=== PATIENT | female | born 1985 | race Caucasian/White ===

== ENCOUNTER 2017-02-18 20:06 | Emergency (ER) | payer OTHER ==
--- OUTSIDE RECORDS SUMMARY | 2017-02-18 20:32 | XMS REPORT | Continuity of Care Document ---
:1985 Author Organization [place] [address] Care Team Providers Name Role Phone Provider, None Per Patient Primary Care Provider Unavailable Source Comments This disclosure is being made pursuant to the [employer] program and maynot contain all information available regarding this patient.[facility] Active Allergies and Adverse Reactions Allergen Noted Date Severity Reactions Comments Keflex 03/09/2015 High Anaphylaxis Current Medications Be aware that medications may not be up to date as of this document. Alwaysverify current medications with the patient. Prescription Sig. Disp. Refills Start Date End Date Status Levothyroxine Sodium Take by mouth. Active 150 MCG CAPS Unclassified (UNABLE strattera Active TO FIND) ibuprofen Take 1 tablet by 30 tablet 0 03/09/2015 Active (ADVIL,MOTRIN) 600 MG mouth every 8 tablet (eight) hours as needed for Pain. bacitracin 500 UNIT/GM To be used after 14 g 0 03/09/2015 Active ointment blisters rupture. Two times daily to affected areas. Active Problems No known active problems Social History Tobacco Use Types Packs/Day Years Used Date Current Every Day Smoker Cigarettes Smokeless Tobacco: Never Used Alcohol Use Drinks/Week oz/Week Comments No Last Filed Vital Signs Vital Sign Reading Time Taken Blood Pressure 137/74 03/09/2015 4:15 PM CDT Pulse 70 03/09/2015 4:15 PM CDT Temperature 36.2 C (97.2 F) 03/09/2015 4:15 PM CDT Respiratory Rate 16 03/09/2015 4:15 PM CDT Height 1.778 m (5' 10") 03/09/2015 3:06 PM CDT Weight 111.131 kg (245 lb) 03/09/2015 3:06 PM CDT Body Mass Index 35.15 03/09/2015 3:06 PM CDT Oxygen Saturation 99% 03/09/2015 4:15 PM CDT Plan of Care Health Maintenance Due Date Last Done Comments Tetanus/Pertussis (1 - Tdap) 2003 Pap Smear 2005 Influenza Immunization (#1) 2016 Results from Last 3 Months Not on file
[2017-02-18] MEDS ORDERED: SULFAMETHOXAZOLE/TRIMETHOPRIM 1 TAB TABLET PO ONE (20:33)
[2017-02-18] MEDS ORDERED: IBUPROFEN 600 MG TABLET PO ONE (20:33)
[2017-02-18] MEDS ORDERED: MUPIROCIN 22 APPL TUBE TP ONE ×2 (20:36→20:39)
[2017-02-18] MEDS ORDERED: SULFAMETHOXAZOLE/TRIMETHOPRIM 1 TAB TABLET ONE (20:40)
[2017-02-18] MEDS ORDERED: IBUPROFEN 600 MG TABLET ONE (20:40)
[2017-02-18 20:55] VITALS: BP 135/82
--- NOTE | 2017-02-18 21:06 | ERNOTE ---
Integumentary HPI - Narrative Date of Service: 02/18/17 - General Presenting Symptoms: abscess Time Seen by Provider: 02/18/17 20:22 Source: patient, RN notes reviewed Exam Limitations: no limitations - Immun/Allergies/Home Medications Immunizations: IMMUNIZATION HX Immunizations Up to Date Yes History of Influenza Vaccine Yes Allergies/Adverse Reactions: Allergies Allergy/AdvReac Type Severity Reaction Status Date / Time No Known Allergies Allergy Verified 02/18/17 20:17 Home Medications: HOME MEDICATIONS Levothyroxine Sodium [Levothyroxine (Synthroid)] 150 mcg PO DAILY 02/04/13 [ Last Taken 01/09/14] Albuterol Sulfate [Albuterol Sulfate Hfa] 2 puff IH Q4H PRN 01/09/14 [Last Taken 01/09/14 21:00] Ibuprofen [Motrin] 600 mg PO Q6H PRN #40 tab 02/18/17 [Last Taken Unknown] Sulfamethoxazole/Trimethoprim [Bactrim Ds] 1 tab PO BID #20 tab 02/18/17 [Last Taken Unknown] - History of Present Illness Narrative: 31 y/o male ambulatory to the ED for an abscess on her hairline on her posterior neck. She noticed a lesion there 3 or 4 months ago that wound crust over periodically. In the past 2 days, more lesions have appeared and they have become painful. She also reports enlarged lymph nodes in her neck. She is unsure if she has had a fever. She reports that she is in the midst of being evaluated for possible lymphoma. She is having a PET scan next week. Location: Reports: scalp, neck Quality: Reports: painful Exposure: Reports: no cause identified Associated Symptoms: Reports: swelling/mass/lumps Prior Treatment: Denies: recently seen Review of Systems - Review of Systems Constitutional: Absent: chills, malaise EYE: Present: no symptoms reported ENT: Present: no symptoms reported Respiratory: Absent: shortness of breath, cough Cardiology: Absent: chest pain, syncope Gastrointestinal/Abdominal: Absent: nausea, vomiting Genitourinary: Absent: other - possible Musculoskeletal: Present: neck pain. Absent: back pain, joint pain Skin: Present: lesions, lumps. Absent: rash, change in color Neurological: Absent: headache, dizziness/light-headedness Endocrine: Present: no symptoms reported Hematologic/Lymphatic: Present: no symptoms reported Psych: Present: no symptoms reported - Patient's Past Medical History Patient History - Medical: Hypothyroidism, Migraines, Obesity, Seizures Patient History - Cardiac/Respiratory: Asthma Patient History - Cancer: No Hx of Cancer Patient History - Surgical Procedures: , D & C Patient History - Other: None LMP (females 10-50): 3 weeks - Social History Living Situations: home Psych History: No pertinent hx Smoking Status: Current every day smoker Alcohol Use: rarely Drug Use: marijuana - Immunizations Immunizations Up to Date: Yes History of Influenza Vaccine: Yes Physical Exam - Physical Exam General Appearance: Present: wd/wn, alert, mild distress, anxious, obese Eye Exam: Normal inspection: bilateral Ears, Nose, Throat: Present: normal ENT inspection Neck: Present: supple, limited range of motion - d/t pain/swelling from posterior neck/scalp lesions, lymphadenopathy (R), lymphadenopathy (L) Respiratory: Present: no respiratory distress, normal breath sounds, no accessory muscle use, lungs clear Cardiovascular/Chest: Present: regular rate, rhythm, no murmur Extremity Exam: Present: normal inspection, normal range of motion Neurological Exam: Present: alert, oriented, normal mood/affect, no motor/ sensory deficits Skin Exam: Present: normal color, warm/dry, other - several inflammed, indurated cystic lesions at hairline posteriorly, no drainage present, very tender to touch ED Progress - Vital Signs Patient's Vital Signs:: I have reviewed the patient's vital signs. Vital Signs: Vital Signs 02/18/17 20:09 Temperature 36.4 C L Pulse Rate 98 Respiratory 18 Rate Blood Pressure 138/98 O2 Sat by Pulse 98 Oximetry - Progress/Reassessment Chief Complaint: Abscess Progress:: Unchanged Plan - Plan Plan: None of the lesions currently appear able to being drained and none are able to be cultured. Discussed need for f/u if lesions become larger and fluctuant. Patient in agreement with plan. Departure Clinical Impression: Folliculitis - Departure Disposition: Home Follow Up Needed Condition: Stable Instructions: Abscess, [id number] Additional Instructions: Warm, moist compresses to effected area several times a day Avoid picking at lesions Return for fever, worsening pain, or other concerns Referrals: Bell Felder MD [Primary Care Provider] - Prescriptions: Ibuprofen [Motrin] 600 mg PO Q6H PRN #40 tab PRN Reason: Pain Sulfamethoxazole/Trimethoprim [Bactrim Ds] 1 tab PO BID #20 tab
== END 2017-02-18 20:50 | disposition home or self-care (01) ==
LOC: ER 20:06
DX: L73.9 Follicular disorder, unspecified (principal); E03.9 Hypothyroidism, unspecified; Z72.0 Tobacco use

== ENCOUNTER 2018-10-20 02:27 | Inpatient (IN) ==
[2018-10-20 03:15] LABS: Hematocrit 34.9 % (37.0-47.0); Hemoglobin 11.8 gm/dL (12.5-16.0); Mean Cell Volume 94.6 fl (78-100); Mean Corpuscular Hgb Conc 33.8 g/dl (32-36); Mean Platelet Volume 10.5 fl (8-12.5); Neutrophil # 8.8 K/mm3 (1.3-6.0); Neutrophil % 66.7 % (42-75.0); Platelet Count 243 K/mm3 (150-450); Red Blood Count 3.69 M/mm3 (4.2-5.4); Red Cell Distribution Width 12.7 % (11.5-14.0); White Blood Count 13.2 K/mm3 (4.0-10.5)
[2018-10-20 03:31] LABS: Albumin * 2.4 gm/dl (3.4-5.0); Anion Gap 13.8 mmol/L (6.8-13.8); BUN/Creatinine Ratio 23.3 (9.0-21.6); Bilirubin, Total 0.2 mg/dL (0.0-1.1); Ca. Corrected For Albumin 11.1 mg/dL (8.4-10.2); Calcium * 10.1 mg/dL (7.9-10.9); Carbon Dioxide 25.2 mmol/L (24-32.6); Total Protein 6.4 gm/dL (6.2-8.2)
[2018-10-20 03:53] LABS: Random Urine Total Protein 37.1 mg/dL (0-12)
[2018-10-20] MEDS ORDERED: ceFAZolin SODIUM 1 GM VIAL IV STA (04:10)
[2018-10-20] MEDS ORDERED: OXYTOCIN 20 UNITS in RINGER'S SOLUTION,LACTATED 1,000 ML IV ONE (04:11)
--- NOTE | 2018-10-20 04:14 | HP ---
Chief Complaint - Chief Complaint Date of Service: 10/20/18 Chief Complaint: leaking fluid and bleeding History of Present Illness: 33 yo, CF, at 37.6 weeks with EDC of 11/04/18 by a 24.6 week u/s. Presents to the birthplace with complaining of leaking fluid and bleeding. Per patient, she noted leaking a large amount of fluid with bleeding at home about 2:30 am. She also feels cramping. She has no care and she is low functioning. She had one visit in the ER in Jul that gave her the due date above. She had a previous in 2007 closed to her due date with preeclampsia. Her blood pressure was elevated 180/110, 182/97, 142/94, 140/90. Denies headache, blurry vision or epigastric pain. denies chronic hypertension. She takes PNV and levothyroxine. At the place, she was confirmed PROM with some bleeding. her cervix was closed. She had a 4 inch spot of blood on the under sheet. PMH: hypothyroidism PSH C/S x 1 (Sep 2007) SAB x 2 Medical History (Last Reviewed 07/21/18 @ 22:51 by Ting Dueñas RN) Asthma Depression Onset Date: Unknown Hypothyroidism (acquired) Onset Date: Unknown Obesity Onset Date: Unknown Chlamydia trachomatis infection Onset Date: ~2003 History of seizures as a child Onset Date: ~1999 History of wisdom tooth extraction Onset Date: ~1998 Surgical History: Surgical History (Last Reviewed 07/21/18 @ 22:51 by Ting Dueñas RN) History of section Onset Date: ~2007 History of dilation and curettage Onset Date: ~2010 Family History: Family History (Last Reviewed 07/21/18 @ 22:51 by Ting Dueñas RN) Father Hypothyroidism Mother Cancer lung Social History: Preferred Language Mongolian Smoking Status Current every day smoker Psych History No pertinent hx (Last Updated 05/20/18 @ 11:44 by Marj Patrick DNP) No Social History Section defined Review Of Systems (GEN) - Review of Systems Abdominal: Present: Other - cramping Genitourinary: Present: Other - leaking fluid and bleeding. Misc: All systems neg except as marked Immunizations: IMMUNIZATION HX Immunizations Up to Date Yes History of Influenza Vaccine No Allergies/Adverse Reactions: Allergies Allergy/AdvReac Type Severity Reaction Status Date / Time No Known Allergies Allergy Verified 10/20/18 04:06 Home Medications: HOME MEDICATIONS Cefuroxime Axetil [Ceftin] 500 mg PO BID #20 tab 07/22/18 [Last Taken Unknown] HYDROcodone/ACETAMINOPHEN [[place] 5-325] 1 tab PO Q4H PRN #40 tab 07/22/18 [Last Taken Unknown] Levothyroxine Sodium [Synthroid] 150 mcg PO DAILY #30 tab 07/22/18 [Last Taken Unknown] Exam - Exam Constitutional: Present: Alert, Oriented x3, Cooperative ENT Exam: Present: hearing grossly normal Neck: Present: supple Respiratory: Present: lungs clear, normal breath sounds, No rales, No wheezing Cardiovascular/Chest: Present: regular rate, rhythm, no murmur Abdomen: Present: soft, nontender, other - gravid /Rectal: Present: Other - + amniotest and bloody show, cervix closed. Extremity: Present: no pedal edema, no calf tenderness Skin Exam: Present: normal color, warm/dry, no cyanosis Appearance: Present: appropriate appearance Eye contact: Present: cooperative, good eye contact, normal speech Diagnostic Studies: Abnormal Lab Results 10/20/18 10/20/18 10/20/18 Range/Units 03:10 03:10 03:41 WBC 13.2 H (4.0-10.5) K/mm3 RBC 3.69 L (4.2-5.4) M/mm3 Hgb 11.8 L (12.5-16.0) gm/dL Hct 34.9 L (37.0-47.0) % MCH 32.0 H (27-31) pg Immature Gran % (Auto) 0.70 H (0.001-0.429) % Immature Gran # (Auto) 0.09 H (0.000-0.0310) K/mm3 Neutrophils # 8.8 H (1.3-6.0) K/mm3 BUN/Creatinine Ratio 23.3 H (9.0-21.6) Calcium Adj for Albumin 11.1 H (8.4-10.2) mg/dL ALT 15 L (19-67) U/L Albumin 2.4 L (3.4-5.0) gm/dl Ur Random Creatinine 50.1 L (60-200) mg/dL U Random Total Protein 37.1 H (0-12) mg/dL U [place] Prot/Creat Ratio 741 H (0-199) mg/gm Laboratory Results WBC 13.2 K/mm3 (4.0-10.5) H 10/20/18 03:10 RBC 3.69 M/mm3 (4.2-5.4) L 10/20/18 03:10 Hgb 11.8 gm/dL (12.5-16.0) L 10/20/18 03:10 Hct 34.9 % (37.0-47.0) L 10/20/18 03:10 MCV 94.6 fl (78-100) 10/20/18 03:10 MCH 32.0 pg (27-31) H 10/20/18 03:10 MCHC 33.8 g/dl (32-36) 10/20/18 03:10 RDW 12.7 % (11.5-14.0) 10/20/18 03:10 Plt Count 243 K/mm3 (150-450) 10/20/18 03:10 MPV 10.5 fl (8-12.5) 10/20/18 03:10 Immature Gran % (Auto) 0.70 % (0.001-0.429) H 10/20/18 03:10 Immature Gran # (Auto) 0.09 K/mm3 (0.000-0.0310) H 10/20/18 03:10 Neutrophils % 66.7 % (42-75.0) 10/20/18 03:10 Lymphocytes % 23.8 % (20-51) 10/20/18 03:10 Monocytes % 6.9 % (0.0-9) 10/20/18 03:10 Eosinophils % 1.4 % (0.0-3.0) 10/20/18 03:10 Basophils % 0.5 % (0.0-1.0) 10/20/18 03:10 Nucleated RBC % 0.0 k/mm3 (0-1) 10/20/18 03:10 Neutrophils # 8.8 K/mm3 (1.3-6.0) H 10/20/18 03:10 Lymphocytes # 3.15 k/mm3 (1.5-3.5) 10/20/18 03:10 Monocytes # 0.9 k/mm3 (0.0-1.0) 10/20/18 03:10 Eosinophils # 0.2 k/mm3 (0.0-0.7) 10/20/18 03:10 Absolute Basophils 0.1 k/mm3 (0.0-0.1) 10/20/18 03:10 Sodium 138 mmol/L (132-142) 10/20/18 03:10 Plasma Sodium 138 mmol/L (130-142) 10/20/18 03:10 Potassium 4.0 mmol/L (3.4-4.6) 10/20/18 03:10 Chloride 103 mmol/L (97-106) 10/20/18 03:10 Carbon Dioxide 25.2 mmol/L (24-32.6) 10/20/18 03:10 Anion Gap 13.8 mmol/L (6.8-13.8) 10/20/18 03:10 BUN 21 mg/dL (3-23) D 10/20/18 03:10 Creatinine 0.90 mg/dL (0.4-1.4) 10/20/18 03:10 Est GFR (Non-Af Amer) 76 mL/min (60-130) 10/20/18 03:10 BUN/Creatinine Ratio 23.3 (9.0-21.6) H 10/20/18 03:10 Random Glucose 98 mg/dL (70-110) 10/20/18 03:10 Calcium 10.1 mg/dL (7.9-10.9) 10/20/18 03:10 Calcium Adj for Albumin 11.1 mg/dL (8.4-10.2) H 10/20/18 03:10 Total Bilirubin 0.2 mg/dL (0.0-1.1) 10/20/18 03:10 AST 29 U/L (0-48) 10/20/18 03:10 ALT 15 U/L (19-67) L 10/20/18 03:10 Alkaline Phosphatase 152 U/L (50-170) 10/20/18 03:10 Total Protein 6.4 gm/dL (6.2-8.2) 10/20/18 03:10 Albumin 2.4 gm/dl (3.4-5.0) L 10/20/18 03:10 Ur Random Creatinine 50.1 mg/dL (60-200) L 10/20/18 03:41 U Random Total Protein 37.1 mg/dL (0-12) H 10/20/18 03:41 U [place] Prot/Creat Ratio 741 mg/gm (0-199) H 10/20/18 03:41 Assessment/Plan - Narrative Narrative: FHR: 150s, moderate variability and variable decels. [place]: irregular contractions A: 37.6 weeks with PROM, vaginal bleeding and preeclampsia with severe features. Plan: will call for a urgent/emergent c/s.
--- NOTE | 2018-10-20 04:43 | ANES ---
Anesthesia Pre Procedure Eval Vitals/Labs: Last Vital Signs Temp 36.9 C 10/20/18 03:52 Pulse 71 10/20/18 03:52 Resp 18 10/20/18 03:52 BP 142/94 H 10/20/18 03:52 Pulse Ox 97 10/20/18 03:52 HOME MEDICATIONS Cefuroxime Axetil [Ceftin] 500 mg PO BID #20 tab 07/22/18 [Last Taken Unknown] HYDROcodone/ACETAMINOPHEN [[place] 5-325] 1 tab PO Q4H PRN #40 tab 07/22/18 [Last Taken Unknown] Levothyroxine Sodium [Synthroid] 150 mcg PO DAILY #30 tab 07/22/18 [Last Taken Unknown] Allergies/Adverse Reactions: Allergies Allergy/AdvReac Type Severity Reaction Status Date / Time No Known Allergies Allergy Verified 10/20/18 04:06 - Planned Procedure Planned Procedure: C/S Medication List Reviewed:: Yes Allergies Verified: Yes Medical History (Last Reviewed 10/20/18 @ 04:42 by Lauro Cantrell CRNA) Asthma Depression Onset Date: Unknown Hypothyroidism (acquired) Onset Date: Unknown Obesity Onset Date: Unknown Chlamydia trachomatis infection Onset Date: ~2003 History of seizures as a child Onset Date: ~1999 History of wisdom tooth extraction Onset Date: ~1998 Surgical History (Last Reviewed 10/20/18 @ 04:42 by Lauro Cantrell CRNA) History of section Onset Date: ~2007 History of dilation and curettage Onset Date: ~2010 Family History (Last Reviewed 10/20/18 @ 04:42 by Lauro Cantrell CRNA) Father Hypothyroidism Mother Cancer lung - Airway/Neck/Teeth Within Normal Limits:: Yes Teeth Condition: intact Mallampatti Score: 1 Thyromental (T-M) distance: > 6 cm Mandibulo Hyoid distance: > 3 cm - Respiratory Respiratory Physical: lungs clear Smoking Status: Current every day smoker Discussed smoking cessation including day of surgery: Yes Sleep Apnea currently treated: No Sleep Apnea by current assessment: No Discussed Risks/Treatment of YOUNG: No - Cardiovascular Tolerate Activity: Good Heart Sounds: S1 & S2, Regular - Anesthesia Assessment and Plan ASA Class: PS, III Anesthesia Type Plan: Spinal
[2018-10-20 04:56] LABS: Urine Bilirubin Negative (NEGATIVE); Urine Blood 250 /ul (NEGATIVE); Urine Ketone Negative (NEGATIVE); Urine Protein 15 mg/dL (NEGATIVE); Urine Urobilinogen Normal (NORMAL)
[2018-10-20 05:03] LABS: Urine Appearance Cloudy (CLEAR); Urine Bacteria 1+; Urine Color Dark Yellow; Urine Nitrite Positive (NEGATIVE); Urine RBC >50 /hpf (0-5)
[2018-10-20 05:04] LABS: Cocaine Ur Negative (NEGATIVE); Urine Barbiturate Negative (NEGATIVE); Urine Benzodiazepines Negative (NEGATIVE); Urine Opiates Negative (NEGATIVE); Urine PCP Negative (NEGATIVE)
[2018-10-20 05:05] LABS: Urine THC Positive (NEGATIVE)
--- NOTE | 2018-10-20 07:01 | ANES ---
Post Anesthesia Discharge - Transfer of Care Transfer of Care handoff given to nurse: Yes - Discharge from PACU Discharge from PACU when meets criteria: Yes - Discharge to ASU Discharge to ASU-no complications/pt stable: Yes
--- NOTE | 2018-10-20 07:08 | OR ---
Operative Report - Dictated Report Narrative: DATE OF PROCEDURE: 10/20/2018 PROCEDURE: 1. Repeat low transverse section ANESTHESIA: Spinal. PREOPERATIVE DIAGNOSES: 1. Intrauterine at 37 6/7 weeks 2. Previous c-sections x 1 3. No care 4. PROM 5. Vaginal bleeding. 6. Severe preeclampsia 7. Urine drug screen positive for amphetamine and THC POSTOPERATIVE DIAGNOSES: 1. Intrauterine at 37 6/7 weeks 2. Previous c-sections x 1 3. No care 4. PROM 5. Placental abruption 6. Severe preeclampsia 7. Urine drug screen positive for amphetamine and THC SURGEON: Marilin Meadows M.D. ENTERPRISE BUSINESS ARCHITECT: Cristina Phillips FINDINGS: 1. male in cephalic presentation. clear amniotic fluid. Weight 3006 g, 8/9, Time of delivery: 05:46 2. Weak abdominal fascia. Dense adhesions in lower uterine segment, with thin lower uterine segment 2 mm in thickness, bladder adherent high in the lower uterine segment. Upon opening the the lower uterine segment, there was some retroplacental clots extruding out of the incision, suggesting placental abruption. 3. Normal uterus, and normal bilateral ovaries and tubes SPECIMENS: placenta DRAIN: Ledesma to gravity. URINE OUTPUT: 200 ml. BLOOD LOSS: 300 ml. IV FLUIDS: 1700 ml COMPLICATIONS: None. Description of Operative Procedure: Prior to taking the patient to the operating room, the patient's wanted to go with the patient and did not obey nursing arrangement. He got agitated and he carried a long knife in his belt. So police was called in to remove the long knife and to get him to cooperate with us. This delayed the surgery for some time. The patient consented prior to the operation and was taken to the operating room. Spinal anesthesia was achieved without complications. The patient was then placed in the dorsal supine position with leftward tilt. Sequential compression device was placed on the lower extremities and a Ledesma catheter was placed into the bladder. Three grams of Ancef was given prior to the start of anesthesia. The abdomen was prepped with Duraprep and draped in the usual sterile fashion. A time-out procedure was conducted to confirm the correct patient for the correct procedure. Anesthesia was tested and appeared adequate. A Pfannenstiel incision was made with a scalpel. The incision was carried through the subcutaneous layer to the fascia. The fascia was nicked at the midline and extended laterally with Jasso scissors. The upper edge of the fascia incision was grasped with two Addison clamps, elevated, and the underlying rectus muscles were dissected off. The Addison clamps were repositioned to the lower edge of the fascia incision, which was tented up and dissected off from the rectus muscles. The rectus muscles were in the midline. The peritoneal incision was entered bluntly and extended superiorly and inferiorly with good visualization of the bladder. A bladder blade was inserted. The vesicouterine peritoneum was identified, grasped with a smooth pick-ups, and entered sharply with Matzenbaum scissors. The incision was extended laterally, and a bladder flap was created. The bladder was dissected off the lower uterine segment. The bladder blade was repositioned. The lower uterine segment was incised in a transverse fashion with the scalpel. The incision was extended laterally by stretching. The bladder blade was removed. The amniotic sac was ruptured with clear fluid. The baby was in cephalic presentation. The head was elevated through the incision. Fundal pressure was applied and the baby was delivered atraumatically. Baby cried immediately after . The cord was clamped and cut. The baby was handed off to the nurse and the licensing engineer in attendance. Cord blood was obtained. The placenta was removed manually. The uterus was cleared off clots and membrane and repaired in situ. The uterine incision was closed with 0 vicryl in a running-lock fashion. A second imbricating layer was placed with 2-0 Vicryl in a continuous non-lock fashion. Good hemostasis was obtained. The gutters were cleared of blood clots and fluid. The peritoneum was closed with 2-0 Vicryl. The rectus muscle was inspected and found hemostatic. The lower part of the rectus muscles were brought together with two figure of eight sutures to keep the bladder from exposing under the fascia. The fascia was reapproximated with #1 Vicryl in running fashion. The subcutaneous layer was closed with 2-0 vicryl interruptedly. The skin was closed with 3-0 Monocryl suture in a subcuticular fashion. Dermabond was applied to incision. The incision was covered with Steri strips, Telfa, ABD and adhesive pressure dressing tape. The patient tolerated the procedure well. Sponge, lap, needle and instrument counts were correct x 2. The patient was taken to the recovery room in stable condition. Marilin Meadows MD History for MU Definition: * The number of deliveries resulting in a live the patient experienced prior to current hospitalization * The previous delivery of live twins or any live multiple gestation is considered one live event. *If primagravida or nulliparous is documented select zero for the number of previous live births. Live Events: 1
[2018-10-20] MEDS ORDERED: oxyCODONE HCL/ACETAMINOPHEN 1 TAB TABLET PO PRN (07:09)
[2018-10-20] MEDS ORDERED: BISACODYL 10 MG SUPP.RECT RC PRN (07:09)
[2018-10-20] MEDS ORDERED: SENNOSIDES 8.6 MG TABLET PO PRN (07:09)
[2018-10-20] MEDS ORDERED: SIMETHICONE 80 MG TAB.CHEW PO PRN (07:09)
[2018-10-20] MEDS ORDERED: ONDANSETRON HCL/PF 2 MG/ML VIAL IV PRN (07:09)
--- NOTE | 2018-10-20 07:13 | ANES ---
Post Anesthesia Assessment - Vital Signs Vitals: Last Vital Signs Temp 35.7 C L 10/20/18 07:00 Pulse 73 10/20/18 07:10 Resp 10 L 10/20/18 07:10 BP 102/71 10/20/18 07:10 Pulse Ox 100 10/20/18 07:10 Airway Patency: Normal - Mental Status Level Of Consciousness: Awake - Pain Level Pain Score: 0 - N/V Assessment Nausea/Vomiting Presence: None Dehydration:: No
[2018-10-20] MEDS ORDERED: CALCIUM GLUCONATE 4.65 MEQ/10 ML VIAL IV PRN (07:14)
[2018-10-20] MEDS ORDERED: DIAZEPAM 5 MG/ML SYRG IV PRN (07:14)
[2018-10-20] MEDS: RINGER'S SOLUTION,LACTATED 1,000 ML IV PRN ×2 (07:26→08:26)
[2018-10-20] MEDS: IBUPROFEN 800 MG TABLET PO PRN ×2 (08:01→19:19)
[2018-10-20] MEDS ORDERED: HYDROmorphone HCL 1 MG/ML DISP.SYRIN IV PRN (08:21)
[2018-10-20] MEDS: DOCUSATE SODIUM 100 MG CAPSULE PO SCH (08:56)
[2018-10-20] MEDS: MAGNESIUM SULFATE IN WATER 50 ML, MAGNESIUM SULFATE IN WATER 50 ML IV ONE ×4 (08:56→10:00)
[2018-10-20] MEDS: MAGNESIUM SULFATE IN WATER 1,000 ML IV SCH ×2 (08:56→10:37)
[2018-10-20] MEDS ORDERED: LABETALOL HCL 200 MG TABLET PO SCH (13:30)
[2018-10-20] MEDS ORDERED: LABETALOL HCL 100 MG TABLET PO ONE (14:47)
[2018-10-20] MEDS: LABETALOL HCL 100 MG TABLET PO SCH (22:32)
[2018-10-21] MEDS: oxyCODONE HCL/ACETAMINOPHEN 1 TAB TABLET PO PRN ×5 (00:30→23:10)
[2018-10-21] MEDS: DOCUSATE SODIUM 100 MG CAPSULE PO SCH ×3 (00:30→21:27)
[2018-10-21] MEDS: MAGNESIUM SULFATE IN WATER 1,000 ML IV SCH (03:23)
[2018-10-21] MEDS: IBUPROFEN 800 MG TABLET PO PRN ×3 (05:18→18:47)
[2018-10-21 08:00] LABS: Hematocrit 33.6 % (37.0-47.0); Hemoglobin 11.3 gm/dL (12.5-16.0); Mean Cell Volume 95.2 fl (78-100); Mean Corpuscular Hgb Conc 33.6 g/dl (32-36); Mean Platelet Volume 10.3 fl (8-12.5); Neutrophil # 9.4 K/mm3 (1.3-6.0); Neutrophil % 68.5 % (42-75.0); Platelet Count 248 K/mm3 (150-450); Red Blood Count 3.53 M/mm3 (4.2-5.4); Red Cell Distribution Width 12.9 % (11.5-14.0); White Blood Count 13.8 K/mm3 (4.0-10.5)
[2018-10-21 08:10] LABS: Albumin * 2.1 gm/dl (3.4-5.0); Anion Gap 10.5 mmol/L (6.8-13.8); BUN/Creatinine Ratio 13.9 (9.0-21.6); Bilirubin, Total 0.1 mg/dL (0.0-1.1); Ca. Corrected For Albumin 8.2 mg/dL (8.4-10.2); Carbon Dioxide 24.4 mmol/L (24-32.6); Potassium 3.9 mmol/L (3.4-4.6); Total Protein 5.7 gm/dL (6.2-8.2)
[2018-10-21] MEDS: ENOXAPARIN SODIUM 40 MG/0.4 ML SYRG SC SCH (08:41)
[2018-10-21] MEDS: LABETALOL HCL 100 MG TABLET PO SCH ×2 (08:50→21:29)
--- NOTE | 2018-10-21 09:00 | PN ---
Progess Note - Interim Date: 10/21/18 Time: 08:59 Narrative: 10/21/18 09:01 Patient denies complaints. Denies headache, visual changes, epigastric pain, nausea, or vomiting. Pain well controlled. Lochia wnl. Good UOP, cloudy urine Abdomen - soft, appropriately tender Incision - clean, dry, intact Uterus - firm, at umbilicus -1 No calf tenderness Impression/Plan: Post op day #1 s/p repeat section. Severe preeclampsia-resolving improving, d/c mag at noon and increase activity Possible UTI-run culture, give 1 gram Rocephin today Hypothyroidism-pt hasn't been taking meds for months, will check TSH level today
[2018-10-21] MEDS: LEVOTHYROXINE SODIUM 100 MCG TABLET PO SCH (10:41)
[2018-10-22] MEDS: LEVOTHYROXINE SODIUM 100 MCG TABLET PO SCH (07:23)
[2018-10-22] MEDS: ENOXAPARIN SODIUM 40 MG/0.4 ML SYRG SC SCH (07:31)
[2018-10-22] MEDS: DOCUSATE SODIUM 100 MG CAPSULE PO SCH ×3 (07:31→20:12)
--- NOTE | 2018-10-22 10:48 | PN ---
Progess Note - Interim Date: 10/22/18 Time: 10:43 Narrative: 10/22/18 10:43 Patient denies complaints. Denies headache, visual changes, epigastric pain, nausea, or vomiting. Pain well controlled. Tearful taking to her bipolar/schizophrenic . Lochia wnl. Good UOP, passing flatus Abdomen - soft, appropriately tender Incision - clean, dry, intact Uterus - firm, at umbilicus -1 No calf tenderness Impression/Plan: Post op day #2 s/p repeat section. Severe preeclampsia-resolving, BP's normalized, holding labetolol today Possible UTI-culture pending, s/p rocephin Hypothyroidism-uncontrolled, started levothyroxine [facility] consult
[2018-10-22] MEDS: LABETALOL HCL 100 MG TABLET PO SCH ×2 (13:22→20:13)
[2018-10-22] MEDS: oxyCODONE HCL/ACETAMINOPHEN 1 TAB TABLET PO PRN ×2 (13:22→20:20)
[2018-10-22] MEDS: IBUPROFEN 800 MG TABLET PO PRN (20:20)
[2018-10-23] MEDS: oxyCODONE HCL/ACETAMINOPHEN 1 TAB TABLET PO PRN ×2 (03:59→10:01)
[2018-10-23] MEDS: IBUPROFEN 800 MG TABLET PO PRN ×3 (03:59→20:15)
[2018-10-23] MEDS: LEVOTHYROXINE SODIUM 100 MCG TABLET PO SCH (09:23)
[2018-10-23] MEDS: LABETALOL HCL 100 MG TABLET PO SCH (09:25)
[2018-10-23] MEDS: ENOXAPARIN SODIUM 40 MG/0.4 ML SYRG SC SCH (09:27)
--- NOTE | 2018-10-23 09:29 | PN ---
Subjective - Date and Time Seen Date: 10/23/18 Time: 09: Objective - Vitals Vitals: Last Vital Signs Temp 36.4 C 10/22/18 13:05 Pulse 72 10/23/18 09:25 Resp 16 10/22/18 23:45 BP 184/103 H 10/23/18 09:25 Pulse Ox 99 10/22/18 23:45 Patient awoken from sleep. Denies any headache, visual changes, or epigastric pain Blood pressures in severe range. Abdomen soft, nontender. Uterus at umbilicus +2, firm DTR 2/4, no clonus, no pitting edema Impression: day 2 status post . No care. Multi substance abuse. Hypothyroid severely [id number]. Preeclampsia now with severe features. Plan: IV labetalol, increase oral labetalol to 400 mg twice a day. CBC and CMP stat. Seizure precautions until labs back. Cauti Physician Documentation - Urinary Catheter Management Urethral (Ledesma) Date of Insertion: 10/20/18 Date of Removal: 10/21/18 Time of Removal: 13:30
[2018-10-23] MEDS: LABETALOL HCL 5 MG/ML VIAL IV ONE ×2 (09:41→10:16)
[2018-10-23 10:00] LABS: Hematocrit 34.8 % (37.0-47.0); Hemoglobin 11.2 gm/dL (12.5-16.0); Mean Corpuscular Hemoglobin 31.5 pg (27-31); Mean Corpuscular Hgb Conc 32.2 g/dl (32-36); Mean Platelet Volume 10.1 fl (8-12.5); Neutrophil # 7.6 K/mm3 (1.3-6.0); Neutrophil % 62.3 % (42-75.0); Platelet Count 326 K/mm3 (150-450); Red Blood Count 3.55 M/mm3 (4.2-5.4); Red Cell Distribution Width 12.8 % (11.5-14.0); White Blood Count 12.2 K/mm3 (4.0-10.5)
[2018-10-23] MEDS: DOCUSATE SODIUM 100 MG CAPSULE PO SCH ×2 (10:02→20:14)
[2018-10-23 10:09] LABS: Anion Gap 12.7 mmol/L (6.8-13.8); BUN/Creatinine Ratio 12.5 (9.0-21.6); Bilirubin, Total 0.2 mg/dL (0.0-1.1); Ca. Corrected For Albumin 9.8 mg/dL (8.4-10.2); Calcium * 8.5 mg/dL (7.9-10.9); Carbon Dioxide 25.5 mmol/L (24-32.6); Potassium 4.2 mmol/L (3.4-4.6); Total Protein 5.9 gm/dL (6.2-8.2)
[2018-10-23] MEDS: LABETALOL HCL 200 MG TABLET PO SCH ×2 (10:16→20:14)
[2018-10-23 12:46] LABS: Hep B Surface Antigen Confirm DNR
[2018-10-23] MEDS ORDERED: NIFEdipine 10 MG CAPSULE PO ONE (19:00)
--- NOTE | 2018-10-23 19:22 | PN ---
Subjective - Date and Time Seen Date: 10/23/18 Time: 19:09 Subjective Narrative: Denies headache, visual changes, epigastric pain, or feeling bad. Objective - Review of Systems Generalized/Overall Review: Reports: No Symptoms Reported EENTM: Reports: No Symptoms Reported Respiratory: Reports: No Symptoms Reported Cardiac: Reports: No Symptoms Reported Abdominal: Reports: No Symptoms Reported Genitourinary Symptoms: Reports: No Symptoms Reported Musculoskeletal Complaints: Reports: No Symptoms Reported Neurological: Reports: Emotional Problems - upset earlier today with [facility] meeting Skin: Reports: No Symptoms Reported Endocrine: Reports: No Symptoms Reported - Vitals Vitals: Last Vital Signs Temp 36.6 C 10/23/18 18:30 Pulse 76 10/23/18 19:08 Resp 20 10/23/18 18:30 BP 188/109 H 10/23/18 19:08 Pulse Ox 98 10/23/18 18:30 - Abnormal Lab Findings Abnormal Lab Findings: Abnormal Lab Results 10/23/18 10/23/18 Range/Units 09:35 09:35 WBC 12.2 H (4.0-10.5) K/mm3 RBC 3.55 L (4.2-5.4) M/mm3 Hgb 11.2 L (12.5-16.0) gm/dL Hct 34.8 L (37.0-47.0) % MCH 31.5 H (27-31) pg Immature Gran % (Auto) 0.50 H (0.001-0.429) % Immature Gran # (Auto) 0.06 H (0.000-0.0310) K/mm3 Eosinophils % 3.6 H (0.0-3.0) % Neutrophils # 7.6 H (1.3-6.0) K/mm3 ALT 12 L (19-67) U/L Total Protein 5.9 L (6.2-8.2) gm/dL Albumin 2.0 L (3.4-5.0) gm/dl - Exam Constitutional: Present: Alert, Oriented x3, Cooperative, No distress ENT Exam: Present: hearing grossly normal Breasts: Present: Exam deferred Respiratory: Present: lungs clear, no respiratory distress Cardiovascular/Chest: Present: regular rate, rhythm Abdomen: Present: soft, nontender, no rebound tenderness /Rectal: Present: Exam deferred Extremity: Present: no pedal edema, no calf tenderness Skin Exam: Present: normal color, warm/dry, no cyanosis Neurologic: Present: alert, normal mood/affect, oriented x 3 Appearance: Present: appropriate appearance, appropriate insight Eye contact: Present: cooperative, good eye contact, normal speech Thoughts: Present: normal thought pattern Cauti Physician Documentation - Urinary Catheter Management Urethral ([place]) Date of Insertion: 10/20/18 Date of Removal: 10/21/18 Time of Removal: 13:30 Assessment/Plan - Problems/Diagnosis (1) Hypertension, poor control Problem: Acute Narrative: Patient's discharge canceled due to uncontrolled blood pressures in the severe range. Will give nifedipine 20mg PO x 1. If BP out of severe range will add nifedipine 60mg XL to labetalol 400mg BID regimen.
[2018-10-23 20:19] LABS: Hepatitis B Surface Antigen NON-REACTIVE (NON-REACTIVE)
[2018-10-24] MEDS ORDERED: NIFEdipine 30 MG TAB.SR.24H PO SCH ×2 (06:00→09:15)
[2018-10-24] MEDS: LEVOTHYROXINE SODIUM 100 MCG TABLET PO SCH (06:07)
[2018-10-24] MEDS: LABETALOL HCL 200 MG TABLET PO SCH (08:36)
[2018-10-24] MEDS: DOCUSATE SODIUM 100 MG CAPSULE PO SCH (08:36)
[2018-10-24] MEDS: ENOXAPARIN SODIUM 40 MG/0.4 ML SYRG SC SCH (08:39)
--- NOTE | 2018-10-24 08:59 | PN ---
Subjective - Date and Time Seen Date: 10/24/18 Time: 08:52 Subjective Narrative: Denies headache, visual changes, epigastric pain. Tolerating regular diet and ambulating without difficulty. Objective - Review of Systems Generalized/Overall Review: Reports: No Symptoms Reported EENTM: Reports: No Symptoms Reported Respiratory: Reports: No Symptoms Reported Cardiac: Reports: No Symptoms Reported Abdominal: Reports: No Symptoms Reported Genitourinary Symptoms: Reports: No Symptoms Reported Musculoskeletal Complaints: Reports: No Symptoms Reported Neurological: Reports: No Symptoms Reported Skin: Reports: No Symptoms Reported Endocrine: Reports: No Symptoms Reported - Vitals Vitals: Last Vital Signs Temp 36.5 C 10/24/18 05:36 Pulse 87 10/24/18 08:36 Resp 18 10/24/18 05:36 BP 174/98 H 10/24/18 08:36 Pulse Ox 91 L 10/24/18 00:33 - Abnormal Lab Findings Abnormal Lab Findings: Abnormal Lab Results 10/21/18 10/23/18 10/23/18 Range/Units 09:36 09:35 09:35 WBC 12.2 H (4.0-10.5) K/mm3 RBC 3.55 L (4.2-5.4) M/mm3 Hgb 11.2 L (12.5-16.0) gm/dL Hct 34.8 L (37.0-47.0) % MCH 31.5 H (27-31) pg Immature Gran % (Auto) 0.50 H (0.001-0.429) % Immature Gran # (Auto) 0.06 H (0.000-0.0310) K/mm3 Eosinophils % 3.6 H (0.0-3.0) % Neutrophils # 7.6 H (1.3-6.0) K/mm3 ALT 12 L (19-67) U/L Total Protein 5.9 L (6.2-8.2) gm/dL Albumin 2.0 L (3.4-5.0) gm/dl Free T3 1.1 L pg/mL - Exam Constitutional: Present: Alert, Oriented x3, Cooperative, No distress ENT Exam: Present: hearing grossly normal Breasts: Present: Exam deferred Respiratory: Present: normal breath sounds, no respiratory distress Cardiovascular/Chest: Present: regular rate, rhythm Abdomen: Present: soft, no rebound tenderness /Rectal: Present: Exam deferred Extremity: Present: no pedal edema, no calf tenderness Skin Exam: Present: normal color, warm/dry, no cyanosis Neurologic: Present: alert, normal mood/affect, oriented x 3 Appearance: Present: appropriate appearance, appropriate insight Eye contact: Present: cooperative, good eye contact Thoughts: Present: normal thought pattern, no apparent hallucination Cauti Physician Documentation - Urinary Catheter Management Urethral ([place]ma) Date of Insertion: 10/20/18 Date of Removal: 10/21/18 Time of Removal: 13:30 Assessment/Plan - Problems/Diagnosis (1) Hypertension, poor control Problem: Acute Narrative: BP improved with addition of nifedipine, but will need higher dose. D/c home with f/u BP in 3 days. (2) Drug abuse, amphetamine type Problem: Acute (3) Hypothyroid Problem: Acute (4) Pre-eclampsia Problem: Acute (5) S/P repeat low transverse Problem: Acute
[2018-10-24 16:44] VITALS: BP 143/81
== END 2018-10-24 16:15 | disposition home or self-care (01) | DRG 786 ==
LOC: OBCLINIC 02:27 → OB 04:11
PROVIDERS: ADMIT Obstetrics & Gynecology; ATTEND Obstetrics & Gynecology
CPT/HCPCS: 36415; 59025; 80053; 80307; 81001; 82570; 83735; 84155; 84156; 84439; 84443; 84481; 85025; 86376; 86592; 86762; 86850; 86900; 87086; 87340; 87389; 88307

== ENCOUNTER 2018-10-30 16:04 | Inpatient (IN) ==
[2018-10-30] MEDS ORDERED: CALCIUM GLUCONATE 4.65 MEQ/10 ML VIAL IV PRN (16:43)
[2018-10-30] MEDS ORDERED: DIAZEPAM 5 MG/ML SYRG IV PRN (16:43)
[2018-10-30] MEDS ORDERED: MAGNESIUM SULFATE IN WATER 50 ML, MAGNESIUM SULFATE IN WATER 50 ML IV ONE ×2 (16:43)
[2018-10-30] MEDS ORDERED: MAGNESIUM SULFATE IN WATER 1,000 ML IV SCH (16:45)
[2018-10-30 17:16] LABS: Hematocrit 37.8 % (37.0-47.0); Hemoglobin 12.3 gm/dL (12.5-16.0); Mean Cell Volume 96.4 fl (78-100); Mean Corpuscular Hemoglobin 31.4 pg (27-31); Mean Corpuscular Hgb Conc 32.5 g/dl (32-36); Mean Platelet Volume 8.2 fl (8-12.5); Neutrophil # 6.5 K/mm3 (1.3-6.0); Platelet Count 462 K/mm3 (150-450); Red Blood Count 3.92 M/mm3 (4.2-5.4); Red Cell Distribution Width 12.7 % (11.5-14.0); White Blood Count 10.9 K/mm3 (4.0-10.5)
[2018-10-30 17:25] LABS: Random Urine Total Protein 21.6 mg/dL (0-12)
[2018-10-30 17:29] LABS: Albumin * 3.1 gm/dl (3.4-5.0); Anion Gap 15.7 mmol/L (6.8-13.8); BUN/Creatinine Ratio 15.2 (9.0-21.6); Bilirubin, Total 0.4 mg/dL (0.0-1.1); Ca. Corrected For Albumin 9.2 mg/dL (8.4-10.2); Calcium * 8.8 mg/dL (7.9-10.9); Potassium 3.7 mmol/L (3.4-4.6); Total Protein 7.3 gm/dL (6.2-8.2)
[2018-10-30] MEDS: LABETALOL HCL 200 MG TABLET PO SCH ×2 (17:32→21:31)
[2018-10-30 17:56] LABS: Urine Bilirubin Negative (NEGATIVE); Urine Blood 250 /ul (NEGATIVE); Urine Ketone Negative (NEGATIVE); Urine Nitrite Negative (NEGATIVE); Urine Protein Negative (NEGATIVE); Urine Urobilinogen Normal (NORMAL)
[2018-10-30 17:57] LABS: Urine Appearance Slightly Cloudy (CLEAR); Urine Bacteria 1+; Urine Color Yellow; Urine WBC 0-5 /hpf (0-5)
[2018-10-30 18:53] LABS: Cocaine Ur Negative (NEGATIVE); Urine Barbiturate Negative (NEGATIVE); Urine Benzodiazepines Negative (NEGATIVE); Urine Opiates Negative (NEGATIVE); Urine PCP Negative (NEGATIVE)
[2018-10-30 19:01] LABS: Urine THC Positive (NEGATIVE)
[2018-10-30 19:13] LABS: Hematocrit 40.6 % (37.0-47.0); Hemoglobin 13.1 gm/dL (12.5-16.0); Mean Cell Volume 97.6 fl (78-100); Mean Corpuscular Hemoglobin 31.5 pg (27-31); Mean Corpuscular Hgb Conc 32.3 g/dl (32-36); Mean Platelet Volume 8.4 fl (8-12.5); Neutrophil # 6.3 K/mm3 (1.3-6.0); Neutrophil % 58.3 % (42-75.0); Platelet Count 486 K/mm3 (150-450); Red Blood Count 4.16 M/mm3 (4.2-5.4); Red Cell Distribution Width 12.7 % (11.5-14.0); White Blood Count 10.8 K/mm3 (4.0-10.5)
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
[2018-10-31] MEDS ORDERED: POLYETHYLENE GLYCOL 3350 119 GM BTL PO SCH (09:00)
[2018-10-31] MEDS ORDERED: LABETALOL HCL 100 MG TABLET PO SCH (09:00)
[2018-10-31 16:44] VITALS: BP 167/99
== END 2018-10-31 16:40 | disposition home or self-care (01) | DRG 776 ==
LOC: OB 16:04 → INTOOBSV 16:04
PROVIDERS: ADMIT Obstetrics & Gynecology; ATTEND Obstetrics & Gynecology
CPT/HCPCS: 36415; 80053; 80307; 81001; 82570; 84155; 84156; 85025; 87086

== ENCOUNTER 2021-02-08 02:39 | Observation (INO) ==
--- NOTE | 2021-02-08 03:32 | ERNOTE ---
Medical Problem HPI - Narrative Date of Service: 02/08/21 - General Chief Complaint: General Assessment Time Seen by Provider: 02/08/21 03:00 Source: patient Exam Limitations: no limitations - Immun/Allergies/Home Medications Immunizations: IMMUNIZATION HX Immunizations Up to Date Yes History of Influenza Vaccine No Hx Pneumococcal Vaccination No Allergies/Adverse Reactions: Allergies No Known Allergies Allergy (Verified 02/08/21 03:03) Home Medications: HOME MEDICATIONS NK 02/08/21 [Last Taken Unknown] - History of Present History Narrative: Patient reports acute onset of vaginal bleeding with some mild cramping. Patient reports that she has had the increased bleeding over the past few months. Date (Duration): 02/08/21 Time (Timing): 03:31 Timing: intermittent Severity: mild Review of Systems - Review of Systems Constitutional: Present: fatigue EYE: Present: no symptoms reported ENT: Present: no symptoms reported Respiratory: Present: no symptoms reported Cardiology: Present: no symptoms reported Gastrointestinal/Abdominal: Present: no symptoms reported Genitourinary: Present: other - Vaginal bleeding, cramping Musculoskeletal: Present: no symptoms reported Skin: Present: no symptoms reported Neurological: Present: no symptoms reported Endocrine: Present: no symptoms reported Hematologic/Lymphatic: Present: no symptoms reported Psych: Present: no symptoms reported All Other Systems: All systems neg except as marked Medical History (Last Reviewed 02/08/21 @ 04:55 by Elton Wallace MD) Asthma Depression Onset Date: Unknown Hypothyroidism (acquired) Onset Date: Unknown Migraine Onset Date: Unknown Obesity Onset Date: Unknown Chlamydia trachomatis infection Onset Date: ~2003 History of seizures as a child Onset Date: ~1999 Surgical History: Surgical History (Last Reviewed 02/08/21 @ 04:56 by Elton Wallace MD) History of section Onset Date: ~2007 2007, 2018 History of dilation and curettage Onset Date: ~2010 History of wisdom tooth extraction Onset Date: ~1998 Family History: Family History (Last Reviewed 02/08/21 @ 04:56 by Elton Wallace MD) Father Hypothyroidism Mother Cancer lung Grandmother Cancer paternal-breast Grandmother Cancer maternal-breast, colon Grandfather , maternal Diabetes maternal Social History: (Last Reviewed 02/08/21 @ 03:03 by Leanna Rossi RN) Social History: Marital status: Single Service: No Tobacco: Smoking Status: Current every day smoker Smoking cigarettes per day: 10 Alcohol: alcohol intake: former alcohol intake frequency: a few times a month Substance Use: substance use type: former substance user Dietary Habits: caffeine: Yes Physical Exam - Physical Exam General Appearance: Present: wd/wn, alert, no apparent distress Head Exam: Present: normal inspection, no evidence of injury Eye Exam: Normal inspection: bilateral, PERRL: bilateral, EOMI: bilateral Ears, Nose, Throat: Present: normal ENT inspection, normal pharynx, other - Pale conjunctival Neck: Present: normal inspection, nontender Respiratory: Present: no respiratory distress, normal breath sounds, no accessory muscle use, chest nontender Cardiovascular/Chest: Present: regular rate, rhythm, no murmur, normal peripheral pulses Gastrointestinal/Abdominal: Present: normal bowel sounds, nontender, nondistended, soft, no organomegaly Back Exam: Present: normal inspection, normal range of motion, no CVA tenderness, no vertebral tenderness Extremity Exam: Present: normal inspection, normal range of motion, no edema Neurological Exam: Present: alert, oriented, normal mood/affect, no motor/sensory deficits Skin Exam: Present: normal color, warm/dry Lymphatic Exam: Present: no adenopathy Progress - Vital Signs Vital Signs: Vital Signs 02/08/21 02:57 Temperature 36.6 C Pulse Rate 87 Respiratory Rate 18 Blood Pressure 149/101 H O2 Sat by Pulse Oximetry 100 - Progress/Reassessment Chief Complaint: General Assessment Plan - Plan Plan: Case was discussed with Dr. Stevens on-call for gynecology, we will transfuse the patient 2 units but the patient on Provera and they will be evaluated for follow-up in the office. Departure Clinical Impression: Anemia, Dysfunctional uterine bleeding - Departure Disposition: Still a patient Condition: Good Referrals: Bell Felder MD [Primary Care Provider] -
[2021-02-08 03:44] LABS: Hematocrit 25.5 % (37.0-47.0); Mean Corpuscular Hemoglobin 22.1 pg (27-31); Mean Corpuscular Hgb Conc 28.6 g/dl (32-36); Mean Platelet Volume 8.7 fl (8-12.5); Neutrophil # 5.9 K/mm3 (1.3-6.0); Neutrophil % 62.7 % (42-75.0); Platelet Count 347 K/mm3 (150-450); Red Blood Count 3.31 M/mm3 (4.2-5.4); Red Cell Distribution Width 20.4 % (11.5-14.0); White Blood Count 9.4 K/mm3 (4.0-10.5)
[2021-02-08 03:46] LABS: Hemoglobin 7.3 gm/dL (12.5-16.0)
[2021-02-08 03:58] LABS: Albumin * 3.8 gm/dl (3.4-5.0); BUN/Creatinine Ratio 15.1 (9.0-21.6); Bilirubin, Total 0.2 mg/dL (0.0-1.1); Ca. Corrected For Albumin 8.5 mg/dL (8.4-10.2); Calcium * 8.7 mg/dL (7.9-10.9); Carbon Dioxide 26.2 mmol/L (24-32.6); Potassium 4.2 mmol/L (3.4-4.6); Total Protein 7.8 gm/dL (6.2-8.2)
[2021-02-08] MEDS ORDERED: diphenhydrAMINE HCL 50 MG/ML VIAL IV ONE (04:38)
[2021-02-08] MEDS ORDERED: ACETAMINOPHEN 500 MG TABLET PO ONE (04:38)
[2021-02-08] MEDS ORDERED: diphenhydrAMINE HCL 50 MG/ML VIAL ONE (06:11)
[2021-02-08] MEDS ORDERED: ACETAMINOPHEN 500 MG TABLET ONE (06:11)
--- NOTE | 2021-02-08 12:36 | HP ---
Chief Complaint - Chief Complaint Date of Service: 02/08/21 Time of Service: 11:00 Chief Complaint: vaginal bleeding History of Present Illness: History obtained from ERP, her nurse, and chart. She was camping and started her period, and was passing large softball sized and baseball sized clots. She came to the ED, and hemoglobin was 7.3. She was having some shortness of breath and weakness, so she was symptomatic. ED staff also noticed swelling in her feet. Gynecology was contacted, who recommend transfusing and outpatient follow up. On my exam, she is somnolent and does not waken, despite three separate attempts. She was given benadryl in the ED prior to starting PRBC transfusion. Medical History (Last Reviewed 02/08/21 @ 11:07 by Marlin Dominguez RN) Asthma Depression Onset Date: Unknown Hypothyroidism (acquired) Onset Date: Unknown Migraine Onset Date: Unknown Obesity Onset Date: Unknown Chlamydia trachomatis infection Onset Date: ~2003 History of seizures as a child Onset Date: ~1999 Surgical History: Surgical History (Last Reviewed 02/08/21 @ 11:07 by Marlin Dominguez RN) History of section Onset Date: ~2007 2007, 2018 History of dilation and curettage Onset Date: ~2010 History of wisdom tooth extraction Onset Date: ~1998 Family History: Family History (Last Reviewed 02/08/21 @ 11:07 by Marlin Dominguez RN) Father Hypothyroidism Mother Cancer lung Grandmother Cancer paternal-breast Grandmother Cancer maternal-breast, colon Grandfather , maternal Diabetes maternal Social History: (Last Reviewed 02/08/21 @ 11:08 by Marlin Dominguez RN) Social History: Marital status: Single Service: No Tobacco: Smoking Status: Current every day smoker Smoking cigarettes per day: 10 Alcohol: alcohol intake: former alcohol intake frequency: a few times a month Substance Use: substance use type: former substance user Dietary Habits: caffeine: Yes Review Of Systems (GEN) - Review of Systems Generalized/Overall Review: Present: No Symptoms Reported - unable to obtain Immunizations: IMMUNIZATION HX Immunizations Up to Date Yes History of Influenza Vaccine No Hx Pneumococcal Vaccination No Allergies/Adverse Reactions: Allergies Allergy/AdvReac Type Severity Reaction Status Date / Time No Known Allergies Allergy Verified 02/08/21 03:03 Home Medications: HOME MEDICATIONS NK 02/08/21 [Last Taken Unknown] Exam - Exam Vital Signs: Vital Signs - Last Taken Temp 36.8 C 02/08/21 11:14 Pulse 68 02/08/21 11:14 Resp 18 02/08/21 11:14 BP 152/76 H 02/08/21 11:14 Pulse Ox 98 02/08/21 09:44 Constitutional: Present: Somnolent, Morbidly obese Respiratory: Present: lungs clear, normal breath sounds Cardiovascular/Chest: Present: regular rate, rhythm Extremity: Present: lower extremity edema - 1+ bilateral feet Diagnostic Studies: Abnormal Lab Results 02/08/21 02/08/21 02/08/21 Range/Units 03:38 03:38 04:55 RBC 3.31 L (4.2-5.4) M/mm3 Hgb 7.3 L* (12.5-16.0) gm/dL Hct 25.5 L (37.0-47.0) % MCV 77.0 L (78-100) fl MCH 22.1 L (27-31) pg MCHC 28.6 L (32-36) g/dl RDW 20.4 H (11.5-14.0) % Immature Gran # (Auto) 0.04 H (0.000-0.0310) K/mm3 Eosinophils % 4.1 H (0.0-3.0) % BUN 25 H (3-23) mg/dL Creatinine 1.66 H (0.4-1.4) mg/dL Est GFR (Non-Af Amer) 37 L (60-130) mL/min Crossmatch See Detail Laboratory Results WBC 9.4 K/mm3 (4.0-10.5) 02/08/21 03:38 RBC 3.31 M/mm3 (4.2-5.4) L 02/08/21 03:38 Hgb 7.3 gm/dL (12.5-16.0) L* 02/08/21 03:38 Hct 25.5 % (37.0-47.0) L 02/08/21 03:38 MCV 77.0 fl (78-100) L 02/08/21 03:38 MCH 22.1 pg (27-31) L 02/08/21 03:38 MCHC 28.6 g/dl (32-36) L 02/08/21 03:38 RDW 20.4 % (11.5-14.0) H 02/08/21 03:38 Plt Count 347 K/mm3 (150-450) 02/08/21 03:38 MPV 8.7 fl (8-12.5) 02/08/21 03:38 Immature Gran % (Auto) 0.40 % (0.001-0.429) 02/08/21 03:38 Immature Gran # (Auto) 0.04 K/mm3 (0.000-0.0310) H 02/08/21 03:38 Neutrophils % 62.7 % (42-75.0) 02/08/21 03:38 Lymphocytes % 26.6 % (20-51) 02/08/21 03:38 Monocytes % 5.3 % (0.0-9) 02/08/21 03:38 Eosinophils % 4.1 % (0.0-3.0) H 02/08/21 03:38 Basophils % 0.9 % (0.0-1.0) 02/08/21 03:38 Nucleated RBC % 0.0 k/mm3 (0-1) 02/08/21 03:38 Neutrophils # 5.9 K/mm3 (1.3-6.0) 02/08/21 03:38 Lymphocytes # 2.49 k/mm3 (1.5-3.5) 02/08/21 03:38 Monocytes # 0.5 k/mm3 (0.0-1.0) 02/08/21 03:38 Eosinophils # 0.4 k/mm3 (0.0-0.7) 02/08/21 03:38 Absolute Basophils 0.1 k/mm3 (0.0-0.1) 02/08/21 03:38 Sodium 140 mmol/L (132-142) 02/08/21 03:38 Plasma Sodium 140 mmol/L (130-142) 02/08/21 03:38 Potassium 4.2 mmol/L (3.4-4.6) 02/08/21 03:38 Chloride 105 mmol/L (97-106) 02/08/21 03:38 Carbon Dioxide 26.2 mmol/L (24-32.6) 02/08/21 03:38 Anion Gap 13.0 mmol/L (6.8-13.8) 02/08/21 03:38 BUN 25 mg/dL (3-23) H 02/08/21 03:38 Creatinine 1.66 mg/dL (0.4-1.4) H 02/08/21 03:38 Est GFR (Non-Af Amer) 37 mL/min (60-130) L 02/08/21 03:38 BUN/Creatinine Ratio 15.1 (9.0-21.6) 02/08/21 03:38 Random Glucose 97 mg/dL (70-110) 02/08/21 03:38 Calcium 8.7 mg/dL (7.9-10.9) 02/08/21 03:38 Calcium Adj for Albumin 8.5 mg/dL (8.4-10.2) 02/08/21 03:38 Total Bilirubin 0.2 mg/dL (0.0-1.1) 02/08/21 03:38 AST 33 U/L (0-48) 02/08/21 03:38 ALT 22 U/L (19-67) 02/08/21 03:38 Alkaline Phosphatase 58 U/L (50-170) 02/08/21 03:38 Total Protein 7.8 gm/dL (6.2-8.2) 02/08/21 03:38 Albumin 3.8 gm/dl (3.4-5.0) 02/08/21 03:38 SARS-CoV-2 (PCR) Not detected (NotDetected) 02/08/21 07:24 Blood Type A Positive 02/08/21 04:55 Antibody Screen Negative 02/08/21 04:55 Crossmatch See Detail 02/08/21 04:55 Assessment/Plan - Narrative Narrative: Transfusion ordered by ERP, and she is currently receiving her second unit. I am unable to waken her after she was given benadryl. Will need to keep her here tonight so history can be obtained in the morning. H&H pending for one hour after tranfusion is complete, and will check assess her tomorrow. The edema from her feet may be from her symptomatic anemia, and will reassess this also tomorrow. Unless she has continued uncontrolled bleeding overnight, she will follow up with gynecology on an outpatient basis. - Assessment/Plan (1) Anemia Problem: Acute (2) Dysfunctional uterine bleeding Problem: Acute (3) Hypertension, poor control Assessment: This diagnosis is in her chart, and home meds are listed. Problem: Acute (4) CKD (chronic kidney disease) stage 3, GFR 30-59 ml/min Assessment: Creatinine and GFR today are 1.66 and 37, respectively. These levels were 1.62 and 39 on labs done in 2019, so this may be her baseline. Since she is only 35, this is concerning for renal damage from longstanding uncontrolled hypertension. Will need to discuss this when she's awake. Problem: Chronic Qualifiers: Chronic kidney disease stage 3 subtype: stage 3b (GFR 30-44) Qualified Code(s): N18.32 - Chronic kidney disease, stage 3b
[2021-02-08 14:45] LABS: Hematocrit 32.1 % (37.0-47.0); Hemoglobin 9.3 gm/dL (12.5-16.0)
[2021-02-09 06:25] LABS: Hematocrit 34.1 % (37.0-47.0); Hemoglobin 10.1 gm/dL (12.5-16.0)
[2021-02-09] MEDS ORDERED: FUROSEMIDE 20 MG TABLET PO SCH (09:15)
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
[2021-02-09] MEDS ORDERED: LEVOTHYROXINE SODIUM 150 MCG TABLET PO SCH (09:19)
[2021-02-09 14:30] VITALS: BP 154/97
[2021-02-10] MEDS ORDERED: LEVOTHYROXINE SODIUM 150 MCG TABLET PO SCH (07:00)
== END 2021-02-09 13:40 | disposition home or self-care (01) ==
LOC: MS 02:39 → ER 02:39 → MS 08:50
PROVIDERS: ADMIT Family Medicine; ATTEND Family Medicine